=== PATIENT | female | born 1940 | race Two or more races ===

== ENCOUNTER 2017-08-26 22:23 | Emergency (ER) | payer OTHER ==
[~2017-08-26] VITALS: Ht 160 cm; Wt 57.2 kg
--- NOTE | 2017-08-26 22:36 | NUR ---
PT BBSELF FROM HOME C/O OF PAPITATIONS AND SHARP CHEST PAIN 10/03 SINCE 1800 NON RADIATING. PT STATES + N/DIZZINESS, -V/D. SKIN WNL. PT IS AAOX4. SKIN WNL. RESP EVEN AND UNLABORED. NO S/S OF ACUTE DISTRESS NOTED. PT PLACED IN GOWN AND ON APPOINTMENT CLERK AND POX. PT SAFETY AND COMFORT MEASURES IN PLACE. VSS. AWAITING MD FOR EVAL.
--- NOTE | 2017-08-26 22:38 | NUR ---
EMT BEDSIDE FOR EKG
--- NOTE | 2017-08-26 22:49 | NUR ---
18G IV STARTED ON R FOREARM. BLOOD SPECIMENS COLLECTED AND SENT TO LAB.
[2017-08-26 22:56] LABS: BASOPHILS % (AUTO) 0.3 % (0.0-2.0); EOSINOPHILS % (AUTO) 7.4 % (0.0-6.0); HEMATOCRIT 40 % (33-45); HEMOGLOBIN 13.8 g/dL (11.5-14.8); LYMPHOCYTES # (AUTO) 1.3 /CMM (0.8-4.8); LYMPHOCYTES % (AUTO) 23.6 % (20.0-44.0); MEAN CORPUSCULAR HGB CONC 35 g/dl (31.0-36.0); MEAN CORPUSCULAR VOLUME 84 fL (82-100); MONOCYTES # (AUTO) 0.5 /CMM (0.1-1.30); MONOCYTES % (AUTO) 8.4 % (2.0-12.0); NEUTROPHILS # (AUTO) 3.4 /CMM (1.8-8.9); NEUTROPHILS % (AUTO) 60.3 % (43.0-81.0); PLATELET COUNT (AUTO) 178 /CMM (150-450); RDW COEFFICIENT OF VARIATION 13.6 (11.5-15.0); RED BLOOD CELL COUNT(AUTO) 4.74 MIL/uL (4.0-5.2); WHITE BLOOD COUNT (AUTO) 5.7 K/uL (4.3-11.0)
[2017-08-26 23:12] LABS: CALCIUM, SERUM 9.3 mg/dL (8.5-10.1); CARBON DIOXIDE 29 mmol/L (21-32); CHLORIDE 98 mmol/L (98-107); GLUCOSE 93 mg/dL (74-106); POTASSIUM 3.5 mmol/L (3.5-5.1); SODIUM SERUM 135 mmol/L (136-145); UREA NITROGEN, BLOOD 18 mg/dL (7-18)
[2017-08-26 23:17] LABS: INR 0.91 (0.87-1.13)
[2017-08-26 23:20] LABS: TROPONIN I < 0.017 ng/mL (0.00-0.056)
[2017-08-26 23:25] LABS: B-TYPE NATRIURETIC PEPTIDE 351 PG/ML (0-125)
--- NOTE | 2017-08-27 00:28 | NUR ---
[facility] WAITING FOR MD CALL BACK.
--- NOTE | 2017-08-27 02:09 | NUR ---
call from [facility]. Pt accepted to [facility] ER by Dr Torres. # for report [phone]
[2017-08-27] MEDS ORDERED: hydrALAZINE HCL IV 20 MG VIAL ONE (02:22)
[2017-08-27] MEDS ORDERED: hydrALAZINE HCL IV 20 MG VIAL IV ONE (02:30)
--- NOTE | 2017-08-27 02:51 | NUR ---
REPORT GIVEN TO [facility] FOR [facility]. PRN BEDSIDE TO TRANSPORT PT.
[2017-08-27 02:58] VITALS: BP 149/73
--- NOTE | 2017-08-27 03:01 | NUR ---
Patient Tranfers to outside Facility Physician:DR. MIXON Location:[facility] ED. REPORT GIVEN TO [facility] UPON TRANSFER
== END 2017-08-27 03:05 | disposition short-term general hospital (02) ==
LOC: ER 22:28
DX: I24.9 Acute ischemic heart disease, unspecified (principal); I10 Essential (primary) hypertension; E78.00 Pure hypercholesterolemia, unspecified; F41.9 Anxiety disorder, unspecified; Z90.12 Acquired absence of left breast and nipple; Z90.49 Acquired absence of other specified parts of digestive tract; Z90.5 Acquired absence of kidney; Z90.710 Acquired absence of both cervix and uterus; Z88.5 Allergy status to narcotic agent
CPT/HCPCS: 36415; 71045; 80048; 83880; 84484; 85025; 85730; 93005; 96374; 99285; A4606; J0360; Z7610